=== PATIENT | female | born 1985 | race Caucasian/White ===

== ENCOUNTER 2017-01-24 08:12 | Emergency (ER) | payer OTHER ==
[~2017-01-24] VITALS: Ht 162.6 cm; Wt 90.9 kg
[2017-01-24 08:26] VITALS: BP 124/85; PULSE 101; RESP 16; O2SAT 97
--- NOTE | 2017-01-24 09:08 | ED.REPORT ---
HPI-General Illness Date of Service January 24, 2017 ED Provider: Maggie Olivera MD History of Present Illness: Patient is a 32 year old female with history of vasor-depressor syncopy who comes in to [facility] Emergency Department c/o dizziness and nausea for 4 days. Patient states she was visiting with the friend on Sunday when all of a sudden she started feeling light headed, nauseated and dizzy. She asked her friend to drive her back home that day. Since Sunday, these symptoms occur intermittently and they are worse while standing. Relieving factors include rest and lying down. Associated symptoms include tinnitus and fatigue. Pertinent negatives include chest pain, shortness of breath, headache, vomiting, diarrhea, dysuria, chills, fever. Patient reports having similar episodes years ago when she was diagnosed with vasodepressor syncope. She was put on beta-maria luz at that time which was helpful. She has not been on beta-maria luz for 8 years now but has done well. She also states she had a cold last week. She has not been eating and drinking well since the onset of symptoms 4 days ago. Patient reports that she has had a few episodes of near syncope over the last few days, duting which she feels a sensation of ringing in her ears. Patient went to urgent clinic on Sunday where they did EKG, and blood work which were unremarkable. They also consulted cardiology and arranged a Holter monitor to be set up for the patient. Nursing Notes Stated Complaint: LIGHT HEADED, DIZZY, NAUSEA/4 DAYS Chief Complaint: General Complaint Allergies: Coded Allergies: ciprofloxacin (Verified Allergy, Intermediate, joint pain, 01/24/17) ciprofloxacin HCl (Verified Allergy, Intermediate, joint pain, 01/24/17) levofloxacin (Verified Allergy, Intermediate, joint pain, 01/24/17) moxifloxacin HCl (Verified Allergy, Intermediate, joint pain, 01/24/17) latex (Verified Allergy, Unknown, 01/24/17) Scheduled PRN Ondansetron (Zofran) 4 Mg Tablet 4 MG PO Q4H PRN PRN nausea and dizziness General Time Seen by MD: 09:00 Chief Complaint Dizziness, Not feeling well Hx Obtained From: Patient Arrived By: Walk-in Onset Occurred: 4 days ago Symptom Duration: Since onset Associated with: Reports: Nausea, Weakness Past Medical History Past Medical History Notes: Vasordepressor syncopy Seasonal allergies Past Surgical History Appendectomy Ganglion cyst removal, right hand Smoking History Former Smoker Social History Patient is single. She has 2 children. Works at [employer] at [facility] in [place]. Alcohol Use: "Social" Drug Use: THC (Last use 2 years ago) Ambulatory Status Independent Review of Systems A comprehensive review of systems has been conducted with the patient and is found to be negative except what is mentioned in the history of present illness. Physical Exam Vital Signs Vital Signs Date Time Temp Pulse Resp B/P Pulse Ox O2 Delivery O2 Flow Rate FiO2 01/24/17 10:12 18 118/76 67 01/24/17 08:26 37.2 101 16 124/85 97 Room Air Orthostatics: Patient lying: Blood pressure 118/76, heart rate 69 Patient sitting: Blood pressure 117/76, heart rate 81 Patient standing: Blood pressure 117/81, heart rate 87 General/Constitutional: Well-developed, Well-nourished Head / Eyes: Atraumatic, Normocephalic, PERRL (No nystagmus) ENT: Mucous membranes moist, Conjunctiva normal (tympanic membranes are pearly lopez bilaterally without evidence of obstruction or effusion or infection ) Neck: Supple, Non-tender, Full range of motion Respiratory: Breath sounds normal, Clear to auscultation Cardiovascular: Regular rate & rhythm Abdomen / GI: Soft, Non-tender Extremities: Vascular intact Skin: Warm, Dry Neurologic: Alert, Oriented, Nonfocal Psychiatric: Mood/affect normal, Behavior normal Re-Eval/Medical Decision Med Decision/Clinical Course Pt is scheduled for holter monitor on 01/30 already. Will ask the cardiology clinic to contact her to tell here whre to go and what to do (she is unaware of this apt) no evidence for orthostatic hypotension today PE ruled out based on PERC and WELLS criteria, no othrostasis, no evidence of sepsis, no no evidence for stroke Minieres disease is a likely probablity Discharge & Departure Primary Impression: Dizziness Disposition: Home Discharge Condition All VS Reviewed: Yes Condition: Stable Additional Instructions: Thank you for coming in today, I am so sorry you are dizzy I know that this is miserable. You do have a cardiology appointment scheduled on January 30 to have a Holter monitor placed. The clinic will be calling you to set this up. If your symptoms have resolved by that point you may not need to continue with doing this. In listening to your description, I am wondering if you may have Mnire's disease. I will give some information on this and would encourage you to do a bit of research to see if your symptoms match the descriptions. I will give him Zoan in the emergency department this definitely helps with nausea and can sometimes help with acute Mnire's attacks. I will also send you home with a prescription. You had an excellent and very thorough workup done in urgent care and there is no need to do any additional blood work or testing in the emergency department today. I hope you feel better and find an answer that makes sense. Referrals: Aidee Campbell DO (PCP) EDSupervising Provider for APC: Maggie Olivera MD Attending Statement pt seen and examined with Dr Robertson No evidence of orthostasis at this point. Complete workup done at urgent care all labs studies are reviewed. I do not believe any additional workup is required at this point. We will refer her back to cardiology clinic and her primary care physician. Reassurance given. Agree with assessment as above copies to: Aidee Campbell DO Risk Factors PERC Rule Heart rate 100 or over (initial at 106, repeat at 60) All PERC criteria "No" Well's Criteria for PE Well's PE Score: 0-2 pts (low risk 3.6%) Renée Robertson DO January 24, 2017 09:08 Maggie Olivera MD January 24, 2017 10:13
[2017-01-24 10:12] VITALS: BP 118/76; RESP 18; O2SAT 67
[2017-01-24] MEDS ORDERED: Ondansetron 8 mg ODT Tablet PO ONE (10:30)
[2017-01-24] MEDS ORDERED: ONDA4TAB6 PO (10:34)
== END 2017-01-24 10:43 | disposition home or self-care (01) ==
LOC: SED 08:12
DX: R42 Dizziness and giddiness (principal); R11.0 Nausea; R53.83 Other fatigue; H93.19 Tinnitus, unspecified ear; Z86.79 Personal history of other diseases of the circulatory system; Z87.891 Personal history of nicotine dependence; Z88.1 Allergy status to other antibiotic agents